=== PATIENT | male | born 1995 | race Caucasian/White ===

== ENCOUNTER 2017-02-03 09:38 | Emergency (ER) | payer SELFPAY ==
[~2017-02-03 09:38] MED LIST: AMOX875T PO; HYDR-971 PO
[2017-02-03 09:45] VITALS: BP 123/75
--- NOTE | 2017-02-03 10:01 | ED.ADGEN ---
Past History Past Medical History: No Pertinent History Past Surgical History: Tonsillectomy Alcohol Use: None Drug Use: None Adult General Chief Complaint Chief Complaint Right hand/middle finger laceration HPI HPI Patient is a 21-year-old right-handed male who presents with laceration to right middle finger overlying dorsal PIP joint. Patient states he cut his finger while working on a car 2 days ago. Patient initially clean the wound and posterior with superglue. However, the laceration is since opened up. Denies redness swelling or pain at rest over finger or joint. Tetanus is within the past 10 years. [] Review of Systems Review of Systems ROS as per HPI. All other systems were reviewed and found to be within normal limits, except as documented in this note. Allergies Allergies Allergies Coded Allergies Type Severity Reaction Last Updated Verified No Known Drug Allergies 11/20/14 No Physical Exam Physical Exam Constitutional: Well developed, well nourished, no acute distress, non-toxic appearance. [] Extremities: No tenderness, right middle finger, full thickness laceration over dorsal PIP. No active bleeding, wound is clean, no obvious joint space involvement. Min TTP and ROM. [] EKG EKG [] Radiology/Procedures Radiology/Procedures [] Course & Med Decision Making Course & Med Decision Making Pertinent Labs and Imaging studies reviewed. (See chart for details) [Right third finger laceration > 48 hours old. Currently, no signs of infection. Wound care instructions given, watchful waiting, PCP f/u as needed. ] Final Impression Final Impression [1. Right middle finger laceration] Problems: Dragon Disclaimer Dragon Disclaimer This electronic medical record was generated, in whole or in part, using a voice recognition dictation system. VALE RODRÍGUEZ DO Feb 03, 2017 10:01
== END 2017-02-03 09:55 | disposition home or self-care (01) ==
LOC: ER 09:38
DX: S61.212A Laceration without foreign body of right middle finger without damage to nail, initial encounter (principal); W45.8XXA Other foreign body or object entering through skin, initial encounter; Y93.89 Activity, other specified; Y99.8 Other external cause status; Y92.89 Other specified places as the place of occurrence of the external cause
CPT/HCPCS: 99281

== ENCOUNTER 2017-05-13 01:02 | Emergency (ER) | payer OTHER ==
[~2017-05-13] VITALS: Ht 170.2 cm; Wt 74.8 kg
[2017-05-13 01:02] VITALS: BP 135/78
[2017-05-13] MEDS ORDERED: AMOX1TAB61 PO (01:20)
--- NOTE | 2017-05-13 01:24 | PHYS DOC ---
Past History Past Medical History: No Pertinent History Past Surgical History: No Surgical History Alcohol Use: None Drug Use: None Adult General Chief Complaint Chief Complaint: Dental pain HPI HPI Patient is a 21 year old M who presents with Dental pain over the past several weeks. Jhonatan states that he has had multiple dental problems. He was seen by the dentist and prescribed pain medication. He states that he has a dental appointment in 2 days but feels that he has had increasing pain. He describes pain when biting down and food or with pressure on the affected tooth. He also describes pain with temperature changes and with wind. He has no other associated symptoms. He has no other exacerbating or alleviating factors. Review of Systems Review of Systems Constitutional: Denies fever or chills [] Eyes: Denies change in visual acuity, redness, or eye pain [] HENT: Denies nasal congestion or sore throat [] Respiratory: Denies cough or shortness of breath [] Cardiovascular: No additional information not addressed in HPI [] GI: Denies abdominal pain, nausea, vomiting, bloody stools or diarrhea [] : Denies dysuria or hematuria [] Musculoskeletal: Denies back pain or joint pain [] Integument: Denies rash or skin lesions [] Neurologic: Denies headache, focal weakness or sensory changes [] Endocrine: Denies polyuria or polydipsia [] All other systems were reviewed and found to be within normal limits, except as documented in this note. Family History Family History No Pertinent medical history was reported Current Medications Current Medications Current medications reviewed Allergies Allergies Allergies Coded Allergies Type Severity Reaction Last Updated Verified No Known Drug Allergies 11/20/14 No Physical Exam Physical Exam Constitutional: Well developed, well nourished, no acute distress, non-toxic appearance. [] HENT: Normocephalic, atraumatic, fractured left upper canine with surrounding gingival erythema and tenderness to palpation of the tooth. Multiple dental caries Eyes: EOMI, conjunctiva normal, no discharge. [] Neck: Normal range of motion, no tenderness, supple, no stridor. [] Cardiovascular:Heart rate regular rhythm, no murmur [] Lungs & Thorax: Bilateral breath sounds clear to auscultation [] Skin: Warm, dry, no erythema, no rash. [] Extremities: No tenderness, no cyanosis, no clubbing, ROM intact, no edema. [] Neurologic: Alert and oriented X 3, normal motor function, normal sensory function, no focal deficits noted. [] Psychologic: Affect normal, judgement normal, mood normal. [] Current Patient Data Vital Signs Normal vital signs. Please review nursing documentation for specifics EKG EKG [] Radiology/Procedures Radiology/Procedures [] Course & Med Decision Making Course & Med Decision Making Pertinent Labs and Imaging studies reviewed. (See chart for details) Dental block for pain management was declined Carlos Disclaimer Carlos Disclaimer This electronic medical record was generated, in whole or in part, using a voice recognition dictation system. Departure Departure: Impression: Primary Impression: Pain, dental Disposition: HOME, SELF-CARE Condition: STABLE Referrals: PCP,RALPH (PCP) Patient Instructions: Dental Pain Additional Instructions: Jhonatan was seen in the emergency department for dental pain. No emergency medical condition was found on history or physical exam. His symptoms most consistent with infection. He was started on antibiotic and advised follow-up with his dentist as soon as possible for further management. Scripts Amoxicillin/Potassium Clav (AUGMENTIN 875-125 TABLET) 1 Each Tablet 1 TAB PO BID for 14 Days, #28 TAB Prov: LANCE KINNEY MD 05/13/17 LANCE KINNEY MD May 13, 2017 01:24
[2017-05-13] MEDS ORDERED: AMOXICILLIN/K CLAV 875/125MG TABLET. PO ONE (02:00)
== END 2017-05-13 01:31 | disposition home or self-care (01) ==
LOC: ER 01:02
DX: K08.89 Other specified disorders of teeth and supporting structures (principal)
CPT/HCPCS: 99283

== ENCOUNTER 2017-08-11 20:43 | Emergency (ER) | payer OTHER ==
[~2017-08-11] VITALS: Ht 170.2 cm; Wt 74.8 kg
[~2017-08-11 20:43] MED LIST changes: +AMOX1TAB61 PO
[2017-08-11] MEDS ORDERED: DOXY100C2 PO (21:39)
--- NOTE | 2017-08-11 21:39 | PHYS DOC ---
Past History Past Medical History: Asthma Past Surgical History: Tonsillectomy Alcohol Use: None Drug Use: None Adult General Chief Complaint Chief Complaint: SEXUALLY TRANSMITTED DISEASE [facility] HPI Patient is a 21 year old male who presents with complaint of redness and swelling along the right side of the groin. The patient states that he noticed this over the last 2 days since it has been getting worse. The patient was concerned he may have contracted a sexual transmitted infection. Patient states that the area of redness is localized along the right side of his groin. Patient did not notice any lesions on his scrotum or penis and denies any penile discharge. Patient has had no fevers. Patient has not taken any medications for his symptoms. Patient states that he does regularly shave his pubic hair. Review of Systems Review of Systems Constitutional: Denies fever or chills [] Eyes: Denies change in visual acuity, redness, or eye pain [] HENT: Denies nasal congestion or sore throat [] Respiratory: Denies cough or shortness of breath [] Cardiovascular: No additional information not addressed in HPI [] GI: Denies abdominal pain, nausea, vomiting, bloody stools or diarrhea [] : Redness and swelling to right side of groin, denies penile discharge, dysuria or hematuria [] Musculoskeletal: Denies back pain or joint pain [] Integument: Denies rash or skin lesions [] Neurologic: Denies headache, focal weakness or sensory changes [] All other systems were reviewed and found to be within normal limits, except as documented in this note. Current Medications Current Medications Current Medications Medications (Trade) Dose Ordered Sig/[facility] Start Time Stop Time Status Last Admin Dose Admin Doxycycline Hyclate (Vibra-Tab) 100 mg 1X ONCE 08/11/17 21:45 08/11/17 21:46 UNV Allergies Allergies Allergies Coded Allergies Type Severity Reaction Last Updated Verified No Known Drug Allergies 11/20/14 No Physical Exam Physical Exam Constitutional: Well developed, well nourished, no acute distress, non-toxic appearance. [] HENT: Normocephalic, atraumatic, bilateral external ears normal, oropharynx moist, no oral exudates, nose normal. [] Eyes: PERRLA, EOMI, conjunctiva normal, no discharge. [] Neck: Normal range of motion, no tenderness, supple, no stridor. [] Cardiovascular:Heart rate regular rhythm, no murmur [] Lungs & Thorax: Bilateral breath sounds clear to auscultation [] Abdomen: Bowel sounds normal, soft, no tenderness, no masses, no pulsatile masses. [] Skin: Warm, dry, 2 x 2 centimeter area of erythema with central area of purulence and vesicular formation near hair follicles on right mons pubis, no discrete lesions present on scrotum or penis, no visualized penile drainage. [] Back: No tenderness, no CVA tenderness. [] Extremities: No tenderness, no cyanosis, no clubbing, ROM intact, no edema. [] Neurologic: Alert and oriented X 3, normal motor function, normal sensory function, no focal deficits noted. [] Current Patient Data Vital Signs Vital Signs Date Time Temp Pulse Resp B/P (MAP) Pulse Ox O2 Delivery O2 Flow Rate FiO2 08/11/17 21:00 98.1 98 20 98 Lab Results Not performed EKG EKG Not performed[] Radiology/Procedures Radiology/Procedures Not performed[] Course & Med Decision Making Course & Med Decision Making Pertinent Labs and Imaging studies reviewed. (See chart for details) Patient appears to have evidence of folliculitis and cellulitis likely secondary to shaving her pubic hair. Does not appear to be a sexual transmitted infection. Patient started on doxycycline in the emergency department. Advised to continue with doxycycline over 10 day course and recommended warm compresses to the affected area to prevent festering of infection under the skin. Advised follow-up with primary doctor in 4-5 days for reevaluation and return to the emergency department for any worsening symptoms. Patient was understanding and agreement with treatment plan. Dragon Disclaimer Dragon Disclaimer This electronic medical record was generated, in whole or in part, using a voice recognition dictation system. Departure Departure: Impression: Primary Impression: Folliculitis Additional Impression: Cellulitis Disposition: 01 HOME, SELF-CARE Condition: STABLE Referrals: PCP,NO (PCP) Patient Instructions: Cellulitis, Folliculitis Additional Instructions: Follow-up the primary doctor in 4-5 days for reevaluation. Return to the emergency department for any worsening symptoms. Scripts Doxycycline Hyclate (DOXYCYCLINE HYCLATE) 100 Mg Capsule 1 CAP PO BID, #20 CAP Prov: ERNESTO FLETCHER MD 08/11/17 Problem Qualifiers Additional Impression: Cellulitis Site of cellulitis: unspecified site Qualified Codes: L03.90 - Cellulitis, unspecified ERNESTO FLETCHER MD Aug 11, 2017 21:39
[2017-08-11] MEDS: DOXYCYCLINE HYCLATE 100 MG TABLET PO ONE (21:45)
== END 2017-08-11 21:45 | disposition home or self-care (01) ==
LOC: ER 20:43
DX: L73.9 Follicular disorder, unspecified (principal); L03.314 Cellulitis of groin; J45.909 Unspecified asthma, uncomplicated
CPT/HCPCS: 99283

== ENCOUNTER 2017-08-27 21:35 | Emergency (ER) | payer OTHER ==
[~2017-08-27] VITALS: Ht 185.4 cm; Wt 72.6 kg
[~2017-08-27 21:35] MED LIST changes: +DOXY100C2 PO
[2017-08-27 21:37] VITALS: BP 117/56
--- NOTE | 2017-08-27 21:39 | ED.ADGEN ---
Past History Past Medical History: Asthma Past Surgical History: Tonsillectomy Alcohol Use: None Drug Use: None Adult General Chief Complaint Chief Complaint ".. I think .. I got a rectal hemorrhoid .. I have them before... but my butt been really hurting...".. " Nupur been constipated.." HPI HPI Patient is a 21 year old male who presents with above hx and complaints recurrent hemorrhoids and rectal pain. Patient states this current presentation more painful than usual. Patient has had a recent episodes of constipation. No history of instrumentation rectal sex. No history of colitis. Patient has small amount of blood on wiping after stool. Patient denies any history of immunosuppression. Patient denies any history of travel or specific ill contacts. Patient normally healthy. Review of Systems Review of Systems Constitutional: Denies fever or chills [] Eyes: Denies change in visual acuity, redness, or eye pain [] HENT: Denies nasal congestion or sore throat [] Respiratory: Denies cough or shortness of breath [] Cardiovascular: No additional information not addressed in HPI [] GI: Denies abdominal pain, nausea, vomiting, bloody stools or diarrhea [] complaints of rectal pain and constipation : Denies dysuria or hematuria [] Musculoskeletal: Denies back pain or joint pain [] Integument: Denies rash or skin lesions [] Neurologic: Denies headache, focal weakness or sensory changes [] Endocrine: Denies polyuria or polydipsia [] All other systems were reviewed and found to be within normal limits, except as documented in this note. Family History Family History Noncontributory Current Medications Current Medications See nursing on meds Allergies Allergies Allergies Coded Allergies Type Severity Reaction Last Updated Verified No Known Drug Allergies 11/20/14 No Physical Exam Physical Exam Constitutional: Well developed, well nourished, moderately acute distress, non- toxic appearance. [] HENT: Normocephalic, atraumatic, bilateral external ears normal, oropharynx moist, no oral exudates, nose normal. [] Eyes: PERRLA, EOMI, conjunctiva normal, no discharge. [] Neck: Normal range of motion, no tenderness, supple, no stridor. [] Cardiovascular:Heart rate regular rhythm, no murmur [] Lungs & Thorax: Bilateral breath sounds equal at apex with scattered wheezes on auscultation [] Abdomen: Bowel sounds normal, soft, no tenderness, no masses, no pulsatile masses. [] Has small hemorrhoids. But has a visible rectal tear. No gross blood appreciated. Skin: Warm, dry, no erythema, no rash. [] Back: No tenderness, no CVA tenderness. [] Extremities: No tenderness, no cyanosis, no clubbing, ROM intact, no edema. [] Neurologic: Alert and oriented X 3, normal motor function, normal sensory function, no focal deficits noted. [] Psychologic: Affect anxious, judgement normal, mood normal. [] Current Patient Data Vital Signs Vital Signs Date Time Temp Pulse Resp B/P (MAP) Pulse Ox O2 Delivery O2 Flow Rate FiO2 08/27/17 21:37 98.7 18 99 Room Air EKG EKG [] Radiology/Procedures Radiology/Procedures [] Course & Med Decision Making Course & Med Decision Making Pertinent Labs and Imaging studies reviewed. (See chart for details). Patient is sitz baths. Patient take Tylenol and ibuprofen for pain. Patient avoid constipation with milk of magnesia or MiraLAX [id number]. Patient apply Anusol suppositories twice a day. Patient may use Dibucaine up 4 times a day for pain. Patient advised if no improvement of symptoms we will need follow- up with a colon scopic relation to rule out colitis or other causes of his rectal pain. Must follow-up primary care. Return of any concerns. [] Final Impression Final Impression 1. Rectal Hemorrhoid 2. Rectal Fissure[] Dragon Disclaimer Dragon Disclaimer This electronic medical record was generated, in whole or in part, using a voice recognition dictation system. FABIO MARTINEZ MD Aug 27, 2017 21:39
[2017-08-27] MEDS ORDERED: PRAM56OI TP (22:42)
[2017-08-27] MEDS ORDERED: HYDR25SU18 RC (22:42)
[2017-08-27] MEDS ORDERED: MAGN2400 PO (22:42)
[2017-08-27] MEDS ORDERED: POLY119P4 PO (22:42)
[2017-08-27] MEDS ORDERED: DIBU28OI RC (22:46)
== END 2017-08-27 22:59 | disposition home or self-care (01) ==
LOC: ER 21:35
DX: K64.9 Unspecified hemorrhoids (principal); K60.2 Anal fissure, unspecified; J45.909 Unspecified asthma, uncomplicated
CPT/HCPCS: 99282

== ENCOUNTER 2018-06-29 02:13 | Emergency (ER) | payer SELFPAY ==
[~2018-06-29] VITALS: Ht 185.4 cm; Wt 77.1 kg
[~2018-06-29 02:13] MED LIST changes: +DIBU28OI RC; +HYDR-3165 PO; -HYDR-971 PO; +HYDR25SU18 RC; +MAGN2400 PO; +POLY119P4 PO; +PRAM56OI TP
[2018-06-29 02:25] VITALS: BP 116/67
--- NOTE | 2018-07-01 23:44 | ED.ADGEN ---
Past History Past Medical History: Other Past Surgical History: Other Alcohol Use: None Drug Use: None Adult General Chief Complaint Chief Complaint ( Report- for 06/30/2015- See Downtime written reports. ) Pt.presents with drainage from hematoma on posterior scalp. Area of previously mentioned, that was sutured at on June 20. Sutures are stable. Has schedule d visit for removal on Saturday. Site of laceration clean and antibiotic ointment applied. HPI HPI Patient is a 22 year old male who presents with concern about drainage is serosanguineous fluid from hematoma and laceration repair site. No history of fever. No history of immunosuppression. No recent travel. No specific ill contacts. Does have scheduled follow-up at .( See down time reports for details.) Review of Systems Review of Systems Constitutional: Denies fever or chills [] Eyes: Denies change in visual acuity, redness, or eye pain [] HENT: Denies nasal congestion or sore throat []complaints. Drainage of material from suture site and hematoma Respiratory: Denies cough or shortness of breath [] Cardiovascular: No additional information not addressed in HPI [] GI: Denies abdominal pain, nausea, vomiting, bloody stools or diarrhea [] : Denies dysuria or hematuria [] Musculoskeletal: Denies back pain or joint pain [] Integument: Denies rash or skin lesions [] Neurologic: Denies headache, focal weakness or sensory changes [] Endocrine: Denies polyuria or polydipsia [] All other systems were reviewed and found to be within normal limits, except as documented in this note. Family History Family History Noncontributory Current Medications Current Medications See nursing Allergies Allergies Allergies Coded Allergies Type Severity Reaction Last Updated Verified No Known Drug Allergies 11/20/14 No Physical Exam Physical Exam Constitutional: Well developed, well nourished, no acute distress, non-toxic appearance. [] HENT: Normocephalic, bilateral external ears normal, oropharynx moist, no oral exudates, nose normal. []Healing laceration and hematoma site posterior scalp Eyes: PERRLA, EOMI, conjunctiva normal, no discharge. [] Neck: Normal range of motion, no tenderness, supple, no stridor. [] Cardiovascular:Heart rate regular rhythm, no murmur [] Lungs & Thorax: Bilateral breath sounds equal with scattered wheezes on auscultation [] Abdomen: Bowel sounds normal, soft, no tenderness, no masses, no pulsatile masses. [] Skin: Warm, dry, no erythema, no rash. [] Healing suture site Back: No tenderness, no CVA tenderness. [] Extremities: No tenderness, no cyanosis, no clubbing, ROM intact, no edema. [] Neurologic: Alert and oriented X 3, normal motor function, normal sensory function, no focal deficits noted. []DTRs +2 patella and brachial. Patient is ambulatory without problems. Psychologic: Affect normal, judgement normal, mood normal. [] Current Patient Data Vital Signs Vital Signs Date Time Temp Pulse Resp B/P (MAP) Pulse Ox O2 Delivery O2 Flow Rate FiO2 06/29/18 02:25 97.8 66 18 98 Room Air EKG EKG [] Radiology/Procedures Radiology/Procedures [] Course & Med Decision Making Course & Med Decision Making Pertinent Labs and Imaging studies reviewed. (See chart for details) Laceration site cleaned and antibiotic ointment applied. Patient keep follow-up with primary care as scheduled for removal sutures. Return if any concerns. Continue topical antibiotic Polysporin to the site. Keep scheduled follow-up. See down time reports for details. May be error s in reproduction of this report. [] Final Impression Final Impression 1. Suture site check-wound check[] Dragon Disclaimer Dragon Disclaimer This electronic medical record was generated, in whole or in part, using a voice recognition dictation system. Discharge Summary Visit Information Final Diagnosis Problems Medical Problems: (1) Hematoma of parietal scalp Status: Acute Brief Hospital Course Allergies Allergies Coded Allergies Type Severity Reaction Last Updated Verified No Known Drug Allergies 11/20/14 No Vital Signs Vital Signs Date Time Temp Pulse Resp B/P (MAP) Pulse Ox O2 Delivery O2 Flow Rate FiO2 06/29/18 02:25 97.8 66 18 98 Room Air Brief Hospital Course Mr. Kelly is a 22 old male who presented with wound check. No infection. Sutures stable. Site cleaned. Pt. to keep follow up at . Discharge Information Condition at Discharge: Stable Disposition/Orders: D/C to Home Dischare Medications Active Scripts Active Dibucaine 28 Gm Oint...g. 28 Gm RC QIDP 30 Days Milk Of Magnesia (Magnesium Hydroxide) 2,400 Mg/10 Ml Oral.susp 2,400 Mg PO DAILY 30 Days Miralax (Polyethylene Glycol 3350) 119 Gm Powder 17 Gm PO DAILY Hemorrhoid 1%-12.5% Ointment (Pramoxine HCl/Zinc Oxide) 56 Gm Oint...g. 56 Gm TP PRN PRN 30 Days Anusol-Hc (Hydrocortisone Acetate) 25 Mg Supp.rect 1 Supp RC BID Doxycycline Hyclate 100 Mg Capsule 1 Cap PO BID Augmentin 875-125 Tablet (Amoxicillin/Potassium Clav) 1 Each Tablet 1 Tab PO BID 14 Days Amoxicillin 875 Mg Tablet 1 Tab PO BID Brantley 5-325 Tablet (Hydrocodone Bit/Acetaminophen) 1 Each Tablet 1 Tab PO PRN Q6HRS PRN Dragon Disclaimer This chart was dictated in whole or in part using Voice Recognition software in a busy, high-work load, and often noisy Emergency Department environment. It may contain unintended and wholly unrecognized errors or omissions. FABIO MARTINEZ MD Jul 01, 2018 23:44
== END 2018-06-29 02:48 | disposition home or self-care (01) ==
LOC: ER 02:13
DX: S01.01XA Laceration without foreign body of scalp, initial encounter (principal); Z48.01 Encounter for change or removal of surgical wound dressing; X58.XXXA Exposure to other specified factors, initial encounter; Y93.89 Activity, other specified; Y92.89 Other specified places as the place of occurrence of the external cause; Y99.8 Other external cause status
CPT/HCPCS: 99284

== ENCOUNTER 2019-06-26 22:52 | Emergency (ER) | payer BC ==
[~2019-06-26] VITALS: Ht 185.4 cm; Wt 73.4 kg
[~2019-06-26 22:52] MED LIST changes: -MAGN2400 PO; +MAGN24003 PO
[2019-06-26] MEDS ORDERED: ASPIRIN 325 MG TABLET PO ONE (23:00)
[2019-06-26] MEDS ORDERED: IV NORMAL SALINE 1,000ML 1,000 ML IV ONE (23:00)
--- NOTE | 2019-06-26 23:03 | PHYS DOC ---
Past History Past Medical History: Other Past Surgical History: Other Alcohol Use: None Drug Use: None General Adult EDM: Chief Complaint: chest pain HPI: HPI: 23-year-old male presents with chest pain. He tells me that it is just left of his sternum. It started 1 hour ago while he was lying around watching TV. He was not doing anything strenuous today. He was smoking marijuana 2 hours prior to the onset. It does not radiate anywhere. It is worse with deep breathing. He has had no history of cardiac problems. He denies shortness of breath or diaphoresis. He denies alcohol. He is a cigarette smoker. Denies fever chills. Review of Systems: Review of Systems: Constitutional: Denies fever or chills Eyes: Denies change in visual acuity HENT: Denies nasal congestion or sore throat Respiratory: Denies cough or shortness of breath Cardiovascular: Chest pain GI: Denies abdominal pain, nausea, vomiting, bloody stools or diarrhea : Denies dysuria Musculoskeletal: Denies back pain or joint pain Integument: Denies rash Neurologic: Denies headache, focal weakness or sensory changes Endocrine: Denies polyuria or polydipsia Lymphatic: Denies swollen glands Psychiatric: Denies depression or anxiety Heart Score: HEART Score for Chest Pain: HEART Score for Chest Pain Response (Comments) Value History Slighlty/Non-Suspicious 0 ECG Normal 0 Age < 45 0 Risk Factors 1 or 2 Risk Factors 1 Troponin < Normal Limit 0 Total 1 Risk Factors: Risk Factors: DM, Current or recent (<one month) smoker, HTN, HLP, family history of CAD, obesity. Risk Scores: Score 0 - 3: 2.5% MACE over next 6 weeks - Discharge Home Score 4 - 6: 20.3% MACE over next 6 weeks - Admit for Clinical Observation Score 7 - 10: 72.7% MACE over next 6 weeks - Early Invasive Strategies Allergies: Allergies: Allergies Coded Allergies Type Severity Reaction Last Updated Verified No Known Drug Allergies 11/20/14 No Physical Exam: PE: Constitutional: Well developed, well nourished, no acute distress, non-toxic appearance. [] HENT: Normocephalic, atraumatic, bilateral external ears normal, oropharynx moist, no oral exudates, nose normal. [] Eyes: Proptosis bilaterally. PERRLA, EOMI, conjunctiva normal, no discharge. [] Neck: Normal range of motion, no tenderness, supple, no stridor. [] Cardiovascular: Heart rate 102, regular rhythm, no murmur [] Lungs & Thorax: Bilateral breath sounds clear to auscultation [] Abdomen: Bowel sounds normal, soft, no tenderness, no masses, no pulsatile masses. [] Skin: Warm, dry, no erythema, no rash. [] Back: No tenderness, no CVA tenderness. [] Extremities: No tenderness, no cyanosis, no clubbing, ROM intact, no edema. [] Neurologic: Alert and oriented X 3, normal motor function, normal sensory function, no focal deficits noted. [] Psychologic: Affect normal, judgement normal, mood normal. [] EKG: EKG: Sinus rhythm, rate 63, normal axis, no ST elevations or depressions. [] Radiology/Procedures: Radiology/Procedures: [] Course & Med Decision Making: Course & Med Decision Making Pertinent Labs and Imaging studies reviewed. (See chart for details) Patient's EKG is unremarkable. His labs are unremarkable. His troponin is within normal limits. The patient's urine drug screen is negative. This does not appear to be a cardiopulmonary process. Could be a side effect of his marijuana or the marijuana could have been laced with another synthetic drug t hat we cannot detect. I have advised patient not to do drugs. He is stable for discharge at this time. [] Carlos Disclaimer: Carlos Disclaimer: This electronic medical record was generated, in whole or in part, using a voice recognition dictation system. Departure Departure: Impression: Primary Impression: Chest pain Qualified Codes: R07.9 - Chest pain, unspecified Disposition: HOME, SELF-CARE Condition: STABLE Referrals: PCP,NO (PCP) Patient Instructions: Chest Pain (Nonspecific), [id number] VALE BRADSHAW DO Jun 26, 2019 23:03
--- NOTE | 2019-06-26 23:10 | EKG ---
[address] [address] Test Date: 2019-06-26 Test Time: 22:57:46 Pat Name: CORINA PICKARD Department: Room: Gender: M Program Services Assistant: : [id number] Requested By: VALE BRADSHAW Order Number: [id number] Reading MD: Thomas Barry MD Measurements Intervals [place] Rate: 63 P: 56 FL: 126 QRS: 74 QRSD: 84 T: 34 QT: 326 QTc: 336 Interpretive Statements SINUS RHYTHM Electronically Signed On 06-29-2019 8:35:22 CDT by Thomas Barry MD
[2019-06-26 23:47] LABS: CREATININE 0.9 mg/dL (0.7-1.3); GFR 102.8
[2019-06-26 23:49] LABS: BASO # 0.1 x10^3/uL (0.0-0.2); BASO % 1 % (0-3); EOS # 0.3 x10^3/uL (0.0-0.7); EOS % 3 % (0-3); HEMATOCRIT 42.4 % (39.0-53.0); HEMOGLOBIN 14.3 g/dL (13.0-17.5); LYMPH # 2.8 x10^3/uL (1.0-4.8); LYMPH % 25 % (24-48); MEAN CORPUSCULAR HEMOGLOBIN 32 pg (25-35); MEAN CORPUSCULAR HGB CONC 34 g/dL (31-37); MEAN CORPUSCULAR VOLUME 93 fL (79-100); MONO # 1.6 x10^3/uL (0.0-1.1); MONO % 15 % (0-9); NEUT # 6.3 x10^3uL (1.8-7.7); NEUT % 57 % (31-73); PLATELET COUNT 204 x10^3/uL (140-400); RED BLOOD COUNT 4.54 x10^6/uL (4.30-5.70); RED CELL DISTRIBUTION WIDTH 13.5 % (11.5-14.5); WHITE BLOOD COUNT 11.1 x10^3/uL (4.0-11.0)
[2019-06-26 23:53] LABS: ALBUMIN 3.7 g/dL (3.4-5.0); ALBUMIN/GLOBULIN RATIO 1.2 (1.0-1.7); TOTAL BILIRUBIN 0.2 mg/dL (0.2-1.0); TOTAL PROTEIN 6.8 g/dL (6.4-8.2)
--- NOTE | 2019-06-27 00:02 | RAD ---
EXAM: AP View of the chest DATE: 06/26/2019 10:58 PM INDICATION: Chest pain COMPARISON: No Prior FINDINGS: The heart is not enlarged. Mediastinal and hilar contours are normal. No focal parenchymal airspace opacity. No pleural effusion or pneumothorax. IMPRESSION: 1. No radiographic evidence for acute cardiopulmonary process. Electronically signed by: Fausto Jett MD (06/26/2019 11:59 PM) TIM
[2019-06-27 01:36] LABS: BARBITURATES NEG (NEG); BENZODIAZEPINES NEG (NEG); CANNABINOIDS NEG (NEG); COCAINE NEG (NEG); METHADONE NEG (NEG); OPIATES NEG (NEG); PHENCYCLIDINE NEG (NEG)
[2019-06-27 01:53] LABS: AMPHETAMINE/METHAMPHETAMINE NEG (NEG)
[2019-06-27 01:58] VITALS: BP 131/50
[2019-06-27 01:58] LABS: BACTERIA,URINE FEW /HPF (0-FEW); BILIRUBIN,URINE NEG (NEG); CLARITY,URINE CLEAR; COLOR,URINE YELLOW; GLUCOSE,URINE NEG (NEG); NITRITE,URINE NEG (NEG); RBC,URINE 0 /HPF (0-2); SQUAMOUS EPITHELIAL CELL,UR FEW /LPF; UROBILINOGEN,URINE 0.2 mg/dL (0.2 mg/dL); WBC,URINE 0 /HPF (0-4)
[2019-06-27 01:59] LABS: AMORPHOUS SEDIMENT,UR PRESENT /HPF
== END 2019-06-27 02:05 | disposition home or self-care (01) ==
LOC: ER 22:52
DX: R07.89 Other chest pain (principal); F12.90 Cannabis use, unspecified, uncomplicated; F17.210 Nicotine dependence, cigarettes, uncomplicated
CPT/HCPCS: 36415; 71045; 80053; 80307; 81001; 84484; 85025; 93005; 99285; J7030